=== PATIENT | female | born 1995 | race Caucasian/White ===

== ENCOUNTER 2016-09-04 21:34 | Emergency (ER) | payer OTHER ==
[~2016-09-04] VITALS: Ht 152.4 cm; Wt 79.5 kg
[~2016-09-04 21:34] MED LIST: DESO1TAB4 PO; METO5TAB78 PO
[2016-09-04 22:07] VITALS: BP 138/85; PULSE 94; RESP 16; O2SAT 100
== END 2016-09-04 22:45 | disposition left against medical advice (07) ==
LOC: SED 21:34
DX: Z53.21 Procedure and treatment not carried out due to patient leaving prior to being seen by health care provider (principal)

== ENCOUNTER 2016-10-02 16:49 | Emergency (ER) | payer OTHER ==
[~2016-10-02] VITALS: Ht 152.4 cm; Wt 77.3 kg
[2016-10-02 16:52] VITALS: BP 128/83; PULSE 93; RESP 15; O2SAT 100
--- NOTE | 2016-10-02 17:26 | ED.REPORT ---
HPI-General Illness Date of Service Oct 02, 2016 ED Provider: Rocky Sanchez MD The patient is a 20 year old female at 14 weeks with a medical history including chronic back pain, asthma, and IV heroin use who presents to the ED with nausea and vomiting onset a couple of months ago, worsening three days ago. Today, the patient also began experiencing sore throat, hematemesis, and a diffuse, mild headache that has since resolved. The patient has been unable to eat normally for the past three days. She denies abdominal pain, vaginal bleeding, vaginal discharge, hematochezia, or other symptoms. The patient quit using IV heroin 2-3 weeks ago, after finding out she was . The patient has never had similar symptoms in the past. Nursing Notes Stated Complaint: , VOMITING BLOOD Chief Complaint: & Delivery Nursing Notes Reviewed: Yes Allergies: Coded Allergies: Penicillins (Verified Adverse Reaction, Mild, Nausea, 02/13/15) Scheduled Desogestrel/Ethinyl Estradiol (Apri) 1 Each Tablet 1 TABLET PO DAILY Famotidine (Famotidine) 20 Mg Tablet 20 MG PO BID Scheduled PRN Metoclopramide (Reglan) 5 Mg Tablet 5 MG PO QID PRN PRN For Nausea/Vomiting Metoclopramide (Metoclopramide) 5 Mg Tablet 5 MG PO QID PRN PRN For Nausea General Time Seen by MD: 17:06 Chief Complaint Other (Nausea and Vomiting) Hx Obtained From: Patient Arrived By: Walk-in Sudden in Onset?: Yes Onset Occurred: More than a week ago... (A couple of months, worsening three days ago) Symptom Duration: Intermittent Location: : Head: Neck (Throat) Quality: Painful Severity: Current: Moderate Severity: Maximum: Moderate Pertinent Negative: Relieved by nothing Context Related History: Reports Asthma Recent Healthcare: No recent doctor visit Similar Sx Previous: No Past Medical History Past Medical History Chronic back pain. Asthma. 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 Physical Exam Constitutional: Well-developed, well-nourished. Not diaphoretic. Head: Normocephalic and atraumatic. Mouth/Throat: Oropharynx is clear and moist. No oropharyngeal exudate. Eyes: EOM are normal. Pupils are equal, round, and reactive to light. Neck: Supple, no tracheal deviation. Cardiovascular: Normal rate, regular rhythm. Equal and intact distal pulses throughout. Pulmonary/Chest: Effort normal and breath sounds normal. No respiratory distress. Abdominal: Soft. No distension. Mild epigastric tenderness. There is no rebound or guarding. Bowel sounds present. Musculoskeletal: Range of motion grossly intact, moving all four extremities equally.. No edema or tenderness appreciated. Neurological: AOx3. Grossly nonfocal exam. Strength and sensation intact and equal to bilateral upper and lower extremities. Skin: Warm and dry, no rashes or pallor appreciated. Psychiatric: Appropriate mood and affect. Behavior appears normal. Vital Signs Vital Signs Date Time Temp Pulse Resp B/P Pulse Ox O2 Delivery O2 Flow Rate FiO2 10/02/16 21:40 37.3 94 15 128/71 99 Room Air 10/02/16 21:03 37.3 94 128/71 99 Room Air 10/02/16 18:52 37.1 76 122/73 100 Room Air 10/02/16 16:52 36.2 93 15 128/83 100 Room Air Initial VS: Reviewed Interpretation & Diagnostics URINE : Positive URINE DIPSTICK: Bedside Urine Specific [place] * 1.025 Bedside Urine pH * 5 Bedside Urine Leukocyte Esterase * Negative Bedside Urine Nitrite * Negative Bedside Urine Protein * Negative Bedside Urine Glucose * Normal Bedside Urine Ketones * +++ Large Bedside Urine Urobilinogen * Normal Bedside Urine Bilirubin * Negative Bedside Urine Occult Blood * Negative Urine to Lab * Yes Lab Results Interpretation Result Diagram: 10/02/16199910/02/161999 Test 10/02/16 19:16 10/02/16 20:00 Urine Color Yellow (YELLOW) Urine Appearance Clear (CLEAR,HAZY) Urine pH 5.5 (5.0-8.0) Urine Specific [place] 1.025 (1.003-1.035) Urine Protein Negativemg/dL (NEG,TRACE) Urine Glucose (UA) Negativemg/dL (NEGATIVE) Urine Ketones 80mg/dL (NEGATIVE) Urine Occult Blood Negative (NEGATIVE) Urine Nitrite Negative (NEGATIVE) Urine Bilirubin Negative (NEGATIVE) Urine Urobilinogen Normalmg/dL (NORMAL) Urine Leukocyte Esterase Negative (NEGATIVE) Urine RBC 0-2/hpf (0-2) Urine WBC 0-5/hpf (0-5) Urine Epithelial Cells Moderate/hpf (NONE-MOD) Urine Crystals None seen (NONE SEEN) Urine Bacteria Few/hpf (NONE-FEW) Urine Hyaline Casts None/lpf (NONE) Urine Granular Casts None seen (NONE SEEN) Urine Waxy Casts None seen (NONE SEEN) Urine Red Blood Cell Casts None seen (NONE SEEN) Urine White Blood Cell Casts None seen (NONE SEEN) Urine Mucus Present (None Seen) Urine Trichomonas None seen (NONE SEEN) Urine Yeast None (NONE SEEN) Urinalysis Comment None Urine Culture Reflexed Not indicated White Blood Count 8.5th/mm3 (3.8-10.1) Red Blood Count 4.23mil/mm3 (3.90-5.20) Hemoglobin 11.3g/dL (12.0-15.6) Hematocrit 34.8% (35.0-46.0) Mean Corpuscular Volume 82.3fL (81-100) Mean Corpuscular Hemoglobin 26.7pg (27.0-35.0) Mean Corpuscular Hemoglobin Concent 32.5% (32.0-37.0) Red Cell Distribution Width 13.3% (12.3-15.4) Platelet Count 335bil/L (150-400) Sodium Level 133mEq/L (134-144) Potassium Level 3.8mEq/L (3.5-5.2) Chloride Level 97mEq/L (97-108) Carbon Dioxide Level 18mmol/L (18-29) Blood Urea Nitrogen 6mg/dL (6-20) Creatinine 0.43mg/dL (0.57-1.00) Estimat Glomerular Filtration Rate 268mL/min (>59) Glucose Level 65mg/dL (60-99) Calcium Level 8.9mg/dL (8.5-10.1) Total Bilirubin 0.4mg/dL (0.0-1.2) Aspartate Amino Transf (AST/SGOT) 22U/L (0-50) Alanine Aminotransferase (ALT/SGPT) 14U/L (0-32) Alkaline Phosphatase 91U/L (25-150) Total Protein 7.2g/dL (6.4-8.4) Albumin 3.7g/dL (3.4-5.0) HCG Beta Subunit [id number]/mL X-Ray Chest Interpretation Chest Xray Interpretation: IMPRESSION: No acute cardiopulmonary findings. Dictated by: Maeve Barrios M.D. on 10/02/2016 at 18:53 View: Portable, 1 view Interpretation / Wet Read by: Interpret - Radiologist US Focused OB IMPRESSION: 1. Single live intrauterine gestation with a gestational age of 14 weeks, 2 days by crown-rump length. Approved by: Maeve Barrios M.D. on 10/02/2016 at 20:04 Exam Performed by: Allied health pract Exam Interpreted by: Radiologist Re-Eval/Medical Decision Med Decision/Clinical Course Well appearing female at ~14w gestation reporting hematemesis. Described not as streaks but as dark blood. Reassuring exam and workup, H/H not markedly low, not vomiting blood here. Discussed w/ GI and OB - they don't feel that the patient needs further w/u/scope here given above, and I agree. Patient tolerating po here w/o significant difficulty, no hematemesis here. Plan d/c w/ close outpt f/u, careful return precautions. Patient agreeable to plan, no further questions. Rx for famotidine and reglan written. Source of Hx: Old records Time of Eval: 20:35 Patient Status: Condition improved Re-Evaluation/Progress Note: Patient is feeling better. Discussed with patient x-ray, US, and lab results, diagnosis, and plan for discharge. Follow-up and return to the ER instructions given. Patient agrees with plan for care and all questions were addressed. Consultation #1: Referral / Consult Name: Jim Motley MD Call Returned at: 20:31 [place] Worker: Agrees with eval, Agrees with plan Note: GI: Recommends discharge with nausea medication. Consultation #2: Referral / Consult Name: Breonna Elmore MD Call Returned at: 20:37 [place] Worker: Will see in office, Agrees with eval, Agrees with plan Note: MEDIA PRODUCER: Will see patient in the office. They can call tomorrow. Counseled Regarding: Diagnosis, Lab results, Need for follow-up, When/why to return to ED, Other (Smoking Cessation) Discharge & Departure Primary Impression: Vomiting affecting Disposition: Home Discharge Condition All VS Reviewed: Yes Condition: Improved Additional Instructions: Thank you for entrusting us with your care. Your exam today was reassuring for any serious illness at this time, however I' d like you to follow up with MEDIA PRODUCER and/or your regular doctor within the next several days for a recheck. They will likely recheck your blood levels. Your ultrasound showed a single live intrauterine gestation with a gestational age of 14 weeks, 2 days by crown-rump length. Congratulations! Call your primary care provider on Sunday for a follow-up appointment. Also call the referral MEDIA PRODUCER physician tomorrow for an appointment. Return to the ER with any new or worsening symptoms. Referrals: Kwaku Márquez MD (PCP) Breonna Elmore MD Attestation Portions of this note were transcribed by Mone Pink. I, Dr. Sanchez, personally performed the history, physical exam, and medical decision-making; I reviewed and confirmed the accuracy of the information in the transcribed note. Signed by: Jaqueline Lanier, 10/03/2016, 00:10 copies to: Breonna Elmore MD; Kwaku Márquez MD, William B MD Oct 02, 2016 17:26 MONE PINK Oct 02, 2016 17:59
[2016-10-02] MEDS ORDERED: 0.9% Sodium Chloride 1,000 ML IV ONE (18:18)
[2016-10-02 18:52] VITALS: BP 122/73; PULSE 76; O2SAT 100
--- NOTE | 2016-10-02 18:54 | DRSVH ---
PROCEDURE: X-RAY CHEST ONE VIEW, PORTABLE ([id number]) INDICATIONS: hematemesis; eval for free air, evidence of perf TECHNIQUE: One view of the chest was acquired. COMPARISON: None. FINDINGS: Surgical changes and devices: None. Lungs and pleura: No pleural effusions or pneumothorax. Lungs are clear. Mediastinum: Mediastinal contours appear normal. Heart size is normal. Bones and chest wall: No suspicious bony lesions. Overlying soft tissues appear unremarkable. IMPRESSION: No acute cardiopulmonary findings. Dictated by: Maeve Barrios M.D. on 10/02/2016 at 18:53 Approved by: Maeve Barrios M.D. on 10/02/2016 at 18:53
[2016-10-02 19:35] LABS: APPEARANCE,URINE CLEAR (CLEAR,HAZY); COLOR,URINE YELLOW (YELLOW); PH,URINE 5.5 (5.0-8.0)
[2016-10-02 19:36] LABS: OCCULT BLOOD,URINE NEGATIVE (NEGATIVE); UROBILINOGEN,URINE NORMAL (NORMAL)
--- NOTE | 2016-10-02 20:05 | DRSVH ---
+/- 7 days from 14 weeks to 15 weeks 6 days gestation, +/- 10 days from 16 weeks to 21 weeks 6 days g estation, +/- 2 weeks from 22 weeks to 27 weeks 6 days gestation, +/- 3 weeks for 28 weeks gestation or later. PROCEDURE: US OB<14 WKS INDICATIONS: hematemesis in the setting of possible OUTSIDE/PRIOR DATING DATA: Last menstrual period (LMP): Unknown. LMP-based estimated date of delivery (JAYLIN): Not available. First dating scan (date and location): 10/02/16, [facility]. Estimated date of delivery (JAYLIN) from first dating scan: 03/31/17. TECHNIQUE: Real-time scanning was performed of the fetus and maternal pelvic organs, with image documentation. Endovaginal scanning was also performed to better visualize the fetus and maternal ovaries. COMPARISON: None. FINDINGS: Embryo: A single live intrauterine gestation is present with a crown-rump length of 8.3 cm for a ges tational age of 14 weeks, 2 days. The heart rate is 163 bpm. Comments: No perigestational bleeds. Measurement variability in dating: +/- 4 weeks by LMP, +/- 7 days by mean sac diameter (use before 6 weeks gestation if crown-rump length not able to be measured), +/- 5 days by crown-rump length (up t o 8 weeks 6 days gestation), +/- 7 days by crown-rump length (from 9 weeks to 13 weeks 6 days gestati on). Maternal organs: Ovaries have a normal appearance bilaterally.. Limited images through the kidneys demonstrate no hydronephrosis. IMPRESSION: 1. Single live intrauterine gestation with a gestational age of 14 weeks, 2 days by crown-rump length . Approved by: Maeve Barrios M.D. on 10/02/2016 at 20:04
[2016-10-02 20:16] LABS: Mean Corpuscular Hemoglobin 26.7 pg (27.0-35.0); Mean Corpuscular Volume 82.3 fL (81-100)
[2016-10-02] MEDS ORDERED: Ondansetron 2 mg/mL 2 mL Inj IVPUSH ONE (20:20)
[2016-10-02 21:03] VITALS: BP 128/71; PULSE 94; O2SAT 99
[2016-10-02] MEDS ORDERED: FAMO20TA4 PO (21:31)
[2016-10-02] MEDS ORDERED: MTC5T PO (21:31)
[2016-10-02 21:40] VITALS: BP 128/71; PULSE 94; RESP 15; O2SAT 99
[2016-10-02] MEDS ORDERED: _Ondansetron ODT 4 mg Tablet PO PRN (21:45)
== END 2016-10-02 21:47 | disposition home or self-care (01) ==
LOC: SED 16:49
DX: O21.0 Mild hyperemesis gravidarum (principal); O99.332 Smoking (tobacco) complicating pregnancy, second trimester; J45.909 Unspecified asthma, uncomplicated; G89.29 Other chronic pain; Z3A.14 14 weeks gestation of pregnancy; Z88.0 Allergy status to penicillin
CPT/HCPCS: 36415; 71010; 76801; 80053; 81000; 84702; 85027; 86850; 96361; 96374; 99285; J2405; J7030

== ENCOUNTER 2016-10-19 18:34 | Emergency (ER) | payer OTHER ==
[~2016-10-19] VITALS: Ht 152.4 cm; Wt 79.5 kg
[~2016-10-19 18:34] MED LIST changes: +FAMO20TA4 PO; +MTC5T PO
[2016-10-19 18:38] VITALS: PULSE 124; RESP 16; O2SAT 98
--- NOTE | 2016-10-19 19:45 | ED.REPORT ---
HPI-Overdose/Alcohol Toxicity Date of Service Oct 19, 2016 ED Provider: Colton Isbell MD History of Present Illness: Plan went to go examine and interview the patient, it appears that she has eloped from the department. I searched the premises was unable to find the patient Nursing Notes Stated Complaint: HEROINE OD Chief Complaint: Substance Abuse Nursing Notes Reviewed: Yes ([employer], meds not reconciled) Allergies: Coded Allergies: Penicillins (Verified Adverse Reaction, Mild, Nausea, 10/19/16) Scheduled Desogestrel/Ethinyl Estradiol (Apri) 1 Each Tablet 1 TABLET PO DAILY Famotidine (Famotidine) 20 Mg Tablet 20 MG PO BID Scheduled PRN Metoclopramide (Reglan) 5 Mg Tablet 5 MG PO QID PRN PRN For Nausea/Vomiting Metoclopramide (Metoclopramide) 5 Mg Tablet 5 MG PO QID PRN PRN For Nausea General Time Seen by Provider: 19:35 Chief Complaint Drug overdose Modifying Factors: Accidental Past Medical History Past Medical History Notes: I was unable to examine the patient on this visit she eloped, no notes below R carried forward from previous visit Past Medical History Chronic back pain. Asthma. Past Surgical History D and C Family History non-contributory Smoking History Light Tobacco Smoker Social History Alcohol Use: Denies alcohol use Drug Use: In recovery Occupation lives with boyfriend, Works at [employer] Ambulatory Status Independent Physical Exam I was not able to perform a physical exam of this patient, she eloped from the emergency department Initial Vital Signs Vital Signs (First) Date Time Temp Pulse Resp B/P Pulse Ox O2 Delivery O2 Flow Rate FiO2 10/19/16 18:38 37.0 124 16 98 Room Air Initial VS: Reviewed, Vital signs abnormal (tachy, no BP) Re-Eval/Medical Decision Med Decision/Clinical Course This patient presented after a reported overdose, responding to Narcan. However I was not able to interview and examine the patient and she eloped Source of Hx: Old records Discharge & Departure Departure Notes Patient is not just at risk, but actually eloped. (There is no option for this in the system) Impression: Primary Impression: At risk for elopement Additional Impression: Accidental opiate poisoning Encounter type: initial encounter Qualified Code: T40.601A - Poisoning by unspecified narcotics, accidental (unintentional), initial encounter Referrals: NOPCP (PCP) Colton Isbell MD Oct 19, 2016 19:45
== END 2016-10-19 19:35 | disposition left against medical advice (07) ==
LOC: SED 18:34 → EDBD 18:34 → SED 19:35
DX: Z53.21 Procedure and treatment not carried out due to patient leaving prior to being seen by health care provider (principal); T40.601A Poisoning by unspecified narcotics, accidental (unintentional), initial encounter; X58.XXXA Exposure to other specified factors, initial encounter; Y93.9 Activity, unspecified; Y92.9 Unspecified place or not applicable; Y99.9 Unspecified external cause status; F17.200 Nicotine dependence, unspecified, uncomplicated